=== PATIENT | female | born 1980 | race Caucasian/White ===

== ENCOUNTER → 2018-04-06 | Outpatient (CLI) | payer OTHER ==
--- NOTE | 2018-04-06 15:43 | RADRPT ---
EXAM DATE: 04/06/2018 3:12 PM EDT AGE/SEX: 37 years / Female INDICATIONS: Increased thyroid labs. CLINICAL DATA: This is the patient's initial encounter. Patient reports that signs and symptoms have been present for 1 day and indicates a pain score of 0/10. MEDICAL/SURGICAL HISTORY: Carcinoma, ovarian. Increased thyroid labs. section. Hyst erectomy. COMPARISON: No prior exams available for comparison. MEASUREMENTS: Right Lobe: 3.4 x 1.2 x 1.2 cm Left Lobe: 3.1 x 1.2 x 1.8 cm FINDINGS: Right Lobe: Homogeneous echotexture without nodules or cysts. Vascularity is within normal limits. Left Lobe: Homogeneous echotexture without nodules or cysts. Vascularity is within normal limits. Isthmus: Normal in size without focal abnormality. CONCLUSION: Negative thyroid ultrasound examination. Electronically signed by: Chi Edmond MD 04/06/2018 3:42 PM EDT
== END ==
LOC: HRAD 14:11
PROVIDERS: ATTEND Nurse Practitioner Family
DX: E06.9 Thyroiditis, unspecified (principal)
CPT/HCPCS: 76536